=== PATIENT | female | born 1985 | race Caucasian/White ===

== ENCOUNTER 2022-06-30 11:03 | Outpatient (CLI) | payer BC, SELFPAY ==
[2022-06-30 21:15] LABS: Chloride* 101 mmol/L (96-114)
[2022-06-30 21:16] LABS: Potassium* 4.3 mmol/L (3.6-5.1); Sodium* 135 mmol/L (135-149)
[2022-06-30 21:18] LABS: Creatinine* 0.7 mg/dL (0.5-1.5); Estimated Glomerular Filt Rate 113 ml/min
[2022-06-30 21:19] LABS: Blood Urea Nitrogen* 14 mg/dL (5-24); Calcium* 9.3 mg/dL (8.4-10.6); Carbon Dioxide* 31 mmol/L (20-32); Glucose* 92 mg/dL (60-115)
== END 2022-06-30 11:04 | disposition home or self-care (01) ==
PROVIDERS: PCP Physician Assistant Medical; Visit Provider Emergency Medicine
DX: Z01.818 Encounter for other preprocedural examination (principal)
CPT/HCPCS: 80048

== ENCOUNTER 2022-11-01 10:13 | Outpatient (CLI) | payer BC, SELFPAY ==
[2022-11-01 22:41] LABS: Albumin* 4.2 g/dL (3.3-5.0); Chloride* 105 mmol/L (96-114)
[2022-11-01 22:42] LABS: Potassium* 4.6 mmol/L (3.6-5.1); Sodium* 137 mmol/L (135-149)
[2022-11-01 22:44] LABS: Aspartate Amino Transferase* 24 U/L (12-35); Bilirubin Total* 0.4 mg/dL (0.1-1.5); Carbon Dioxide* 28 mmol/L (20-32); Creatinine* 0.7 mg/dL (0.5-1.5); Estimated Glomerular Filt Rate 113 ml/min; Total Protein* 6.8 g/dL (6.0-8.3)
[2022-11-01 22:45] LABS: Alanine Aminotransferase* 23 U/L (4-35); Alkaline Phosphatase* 84 U/L (40-150); Blood Urea Nitrogen* 17 mg/dL (5-24); Calcium* 9.2 mg/dL (8.4-10.6); Glucose* 90 mg/dL (60-115)
[2022-11-02 21:04] LABS: Rheumatoid Factor 11 IU/mL (0-14)
[2022-11-03 12:13] LABS: Anti-Nuclear Ab(ANA)IgG ELISA None Detected (None Detected)
[2022-11-05 06:33] LABS: Vitamin C, Plasma 52 umol/L (23-114)
== END 2022-11-01 10:14 | disposition home or self-care (01) ==
PROVIDERS: PCP Physician Assistant Medical; Visit Provider Physician Assistant Medical
DX: D69.6 Thrombocytopenia, unspecified (principal)
CPT/HCPCS: 80053; 82180; 86039; 86431; 86812

== ENCOUNTER 2022-11-08 09:04 | Outpatient (CLI) | payer BC, SELFPAY ==
--- NOTE | 2022-11-08 09:15 | CRLHL7_ITS ---
For Patients: As a result of the Century Cures Act, medical imaging exams and procedure reports are released immediately into your electronic medical record. You may view this report before your referring provider. If you have questions, please contact your health care provider. INDICATION: HEAVY MENSES COMPARISON: none TECHNIQUE: 2D dozier scale and color Doppler images were acquired of the pelvis using a transabdominal and transvaginal approach. FINDINGS: Sonographic images demonstrate a normal size and smooth outer contour of the uterus. Uterus measures 8.6 cm in length by 5.3 cm in AP diameter by 6.9 cm in transverse dimension. The myometrium has a heterogeneous echotexture. The endometrial lining appears mildly ill-defined and measures 8 mm in composite thickness. The right ovary measures 2.5 x 1.9 x 2.2 cm in size and the left ovary measures 1.8 x 1.2 x 1.5 cm. The ovaries demonstrate normal arterial and venous blood flow on color Doppler analysis. There are no suspicious fluid collections within the cul-de-sac. IMPRESSION: Endometrial thickness 8 millimeters. No uterine fibroid. Incidental simple left ovarian cyst. Dictated by Aime Rand MD @ 11/08/2022 10:29:19 AM (Electronically Signed)
== END 2022-11-08 09:05 | disposition home or self-care (01) ==
LOC: US 09:05
PROVIDERS: PCP Physician Assistant Medical; Visit Provider Physician Assistant Medical
DX: N92.0 Excessive and frequent menstruation with regular cycle (principal); R93.89 Abnormal findings on diagnostic imaging of other specified body structures; N83.202 Unspecified ovarian cyst, left side
CPT/HCPCS: 76830; 76856

== ENCOUNTER 2022-11-25 09:50 | Outpatient (CLI) | payer BC, SELFPAY ==
[2022-11-25 22:30] LABS: H pylori Ag Stool* Negative (Negative)
== END 2022-11-25 09:51 | disposition home or self-care (01) ==
PROVIDERS: PCP Physician Assistant Medical; Visit Provider Physician Assistant Medical
DX: D69.6 Thrombocytopenia, unspecified (principal)
CPT/HCPCS: 87338

== ENCOUNTER 2022-12-09 14:47 | Outpatient (RCR) | payer BC, SELFPAY | END 2023-06-07 23:59 | disposition home or self-care (01) | LOC: CCIC 14:47 | PROVIDERS: PCP Physician Assistant Medical; Referring Provider Internal Medicine Medical Oncology; Visit Provider Internal Medicine Hematology & Oncology | DX: D69.3 Immune thrombocytopenic purpura (principal) | CPT/HCPCS: 99202; 99203; 99212 ==

== ENCOUNTER 2023-06-30 15:12 | Outpatient (CLI) | payer BC, SELFPAY | END 2023-06-30 15:13 | disposition home or self-care (01) | PROVIDERS: PCP Physician Assistant Medical; Visit Provider Physician Assistant Medical | DX: D69.6 Thrombocytopenia, unspecified (principal); N92.0 Excessive and frequent menstruation with regular cycle; R10.9 Unspecified abdominal pain | CPT/HCPCS: 80053; 82784; 83690; 86364 ==

== ENCOUNTER 2023-07-29 08:28 | Outpatient (CLI) | payer BC, SELFPAY ==
--- NOTE | 2023-07-29 07:56 | W.ANESCHARGE ---
Anesthesia Charges Start Date/Time Anesthesia Start Date: 07/29/23 Anesthesia Start Time: 09:32 Stop Date/Time Anesthesia Stop Date: 07/29/23 Anesthesia Stop Time: 09:48
--- NOTE | 2023-07-29 09:51 | W.ANESCHARGE ---
Anesthesia Charges Start Date/Time Anesthesia Start Date: 07/29/23 Anesthesia Start Time: 09:32 Stop Date/Time Anesthesia Stop Date: 07/29/23 Anesthesia Stop Time: 09:48
== END 2023-07-29 08:29 | disposition home or self-care (01) ==
LOC: OP CLINIC 08:28
PROVIDERS: PCP Physician Assistant Medical; Visit Provider Internal Medicine
DX: K21.9 Gastro-esophageal reflux disease without esophagitis (principal)
CPT/HCPCS: 00731; 43239; 88305; J2704; J3490

== ENCOUNTER 2024-06-01 11:36 | Outpatient (CLI) | payer BC, SELFPAY ==
--- NOTE | 2024-06-06 10:50 | ONC.NURNOTE ---
Addendum entered and electronically signed by Patricia Hoover PageMARJAN 06/20/24 15:00: Reviewed most recent chart note, and lab work per Gisel Clarke PA-C with Dr. Sanchez. Recommend to continue with current plan as per most recent office note by Kennedi Sanchez MD. Appreciate call with Gisel Clarke regarding this patient. Should her symptoms worsen, or platelets drop below 50,000, she should be seen by hem/onc again. Original Note: Patient called stating that her PCP would like her to see [facility] again. Per last note from Dr. Sanchez, we would see patient back if platelets were less than 50K x2. Clay Digger asked patient if having new symptoms, and she notes nose bleed daily, this usually lasts a couple of minutes with pressure to the area. There has been 1-2 instances when this lasted about 10 minutes. This is usually from the right nostrile. This happens randomly and when blowing her nose. She has not seen ENT at this point, she was given a prescription from PCP to apply to the area. She is unsure on what this is and it is not noted in her chart. Nursing to discuss with [facility] whether it would be appropriate to see patient again, or if they have suggestions to PCP. Patient is aware that Dr. Sanchez is not back in the office until next week, nursing to update her late next week.
== END 2024-06-01 11:37 | disposition home or self-care (01) ==
LOC: NFLDREF 06-03 07:54
PROVIDERS: PCP Physician Assistant Medical; Referring Provider Physician Assistant Medical; Visit Provider Physician Assistant Medical
DX: D69.6 Thrombocytopenia, unspecified (principal)
CPT/HCPCS: 80053; 86618; 87468; 87469; 87484; 87798

== ENCOUNTER 2024-06-11 17:34 | Outpatient (CLI) | payer BC, SELFPAY ==
[2024-06-11 23:31] LABS: Chlamydia DNA Amplified* NOT DETECTED (No Detected); GC DNA Amplified* NOT DETECTED (No Detected)
== END 2024-06-11 17:35 | disposition home or self-care (01) ==
LOC: LKVREF 17:34
PROVIDERS: PCP Physician Assistant Medical; Visit Provider Physician Assistant Medical
DX: Z00.00 Encounter for general adult medical examination without abnormal findings (principal); Z11.3 Encounter for screening for infections with a predominantly sexual mode of transmission
CPT/HCPCS: 87491; 87591

== ENCOUNTER 2024-10-08 14:03 | Outpatient (CLI) | payer BC, SELFPAY ==
--- NOTE | 2024-10-08 14:00 | CRLHL7_ITS ---
For Patients: As a result of the Century Cures Act, medical imaging exams and procedure reports are released immediately into your electronic medical record. You may view this report before your referring provider. If you have questions, please contact your health care provider. BILATERAL SCREENING MAMMOGRAM WITH COMPUTER-AIDED DETECTION AND TOMOSYNTHESIS TECHNIQUE: CC and MLO views were obtained. These mammographic images have been obtained using full-field digital technique. These mammographic images were interpreted with the benefit of computer-aided detection. Breast Tomosynthesis was used in this interpretation. COMPARISON FILM: Baseline. FINDINGS: There are scattered areas of fibroglandular density IMPRESSION: There is no radiographic evidence for malignancy. ASSESSMENT: BI-RADS Category 1: Negative RECOMMENDATION: Routine screening mammogram in 1 year. A lay language report of this examination will be provided to the patient. Aime Rand M.D. Diagnostic Radiologist [email or web address] LVAERN/[email or web address] / bM/Dictated by: Aime Rand MD @ 10/12/2024 10:36:00 AM (Electronically Signed)
== END 2024-10-08 14:04 | disposition home or self-care (01) ==
LOC: MAMMO 14:04
PROVIDERS: PCP Physician Assistant Medical; Visit Provider Physician Assistant Medical
DX: Z12.31 Encounter for screening mammogram for malignant neoplasm of breast (principal)
CPT/HCPCS: 77063; 77067

== ENCOUNTER 2024-11-16 10:02 | Day surgery (SDC) | payer BC, SELFPAY ==
[2024-11-16 10:10] VITALS: BMI 31.8
[2024-11-16 10:16] VITALS: BP 133/85; PULSE 85; RESP 16; TEMP 36.6; O2SAT 98
[2024-11-16] MEDS: LIDOCAINE 1%-EPI 1:100,000 20 ML INFILTRATI (11:00)
[2024-11-16] MEDS: BUPIVACAINE 0.5% 30 ML INJECTION (11:00)
[2024-11-16 11:15] VITALS: BP 122/64; PULSE 66; RESP 18; O2SAT 100
[2024-11-16 11:20] VITALS: BP 119/63; PULSE 80; RESP 20
[2024-11-16 11:25] VITALS: BP 116/66; PULSE 72; RESP 18; O2SAT 100
[2024-11-16 11:31] VITALS: BP 121/67; PULSE 71; RESP 18; O2SAT 99
[2024-11-16] MEDS: BACITRACIN OINTMENT BULK TUBE 1 APPLIC TOPICAL (11:35)
--- NOTE | 2024-11-16 11:35 | PM.ORPRC ---
Procedure Note Date of procedure: 11/16/24 Procedure: PREOPERATIVE DIAGNOSIS: 1. Right carpal tunnel syndrome POSTOPERATIVE DIAGNOSIS: 1. Right carpal tunnel syndrome PROCEDURE: 1. Right open carpal tunnel release SURGEON: Ervin Rosas MD. PROPELLANT ASSEMBLER: SYDNEY Hooper ANESTHESIA: Local anesthetic (50:50 mixture of 1% lidocaine with epi and 0.5% marcaine plain) - 10ml total IMPLANTS: None EBL: 2 mL TOURNIQUET: None COMPLICATIONS: None evident INDICATIONS: The patient is a pleasant 39yo Female who has experienced right hand numbess/tingling affecting the radial 3.5 digits for multiple months. It has progressively gotten worse. Nonoperative management has been tried and failed, and therefore surgery was recommended. DESCRIPTION OF PROCEDURE: Following a thorough discussion of risks, benefits, and alternatives consent was obtained and the operative extremity was marked. The patient was brought to the operating room and placed supine on the operating table. Local anesthesia induction was undertaken in preop holding. No antibiotics were administered as this was planned to be a local case only. Proper time-out was performed identifying proper patient, site, and procedure. The operative extremity was prepped and draped in the appropriate sterile fashion using ChloraPrep. An incision was made in line with the radial border of the ring finger beginning 1 cm distal to the distal wrist crease and progressing for another 2.5cm distal. Caution was taken to stay proximal to Figueroa's cardinal line. Sharp incision through the skin, subcutaneous tissue, and palmar fascia was performed. The thenar musculature was bluntly elevated off the transverse carpal ligament. The ligament was directly visualized, and divided sharply with a 15 blade. This was released from its most proximal to the most distal extent. Metzenbaum scissor was also utilized to release the fascia extension proximally. We confirmed complete release of the transverse carpal ligament. Closure was performed with 4-O nylon in interrupted fashion. Soft dressings were applied, and the patient was transferred to the recovery room in stable condition. PLAN: 1. Encourage elevation of the operative extremity. 2. Range of motion of the fingers and hand/wrist as tolerated. 3. Ibuprofen/acetaminophen and/or oxycodone as needed for pain control. 4. Follow up with PA visit or nurse visit in 12-16 days for wound check and suture removal.
[2024-11-16 11:42] VITALS: BP 119/73; PULSE 64; RESP 18; O2SAT 100
== END 2024-11-16 11:45 | disposition home or self-care (01) ==
LOC: OR 10:03
PROVIDERS: PCP Physician Assistant Medical; Visit Provider Orthopaedic Surgery Sports Medicine
PROC: (CPT 64721; principal; 2024-11-16 11:00)
DX: G56.01 Carpal tunnel syndrome, right upper limb (principal)
CPT/HCPCS: 64721; J0665

== ENCOUNTER 2025-07-17 13:40 | Outpatient (CLI) | payer BC, SELFPAY ==
[2025-07-17 23:02] LABS: Chlamydia DNA Amplified* NOT DETECTED (No Detected); GC DNA Amplified* NOT DETECTED (No Detected)
[2025-07-19 03:49] LABS: HPV Source Cervix
[2025-07-24 16:24] LABS: Pap Test Digital Imaging Done; Pap Test Reviewed by Pathologi Done
== END 2025-07-17 13:41 | disposition home or self-care (01) ==
PROVIDERS: PCP Physician Assistant Medical; Visit Provider Physician Assistant Medical
DX: D69.6 Thrombocytopenia, unspecified (principal); N92.6 Irregular menstruation, unspecified; Z12.4 Encounter for screening for malignant neoplasm of cervix; Z11.51 Encounter for screening for human papillomavirus (HPV)
CPT/HCPCS: 87491; 87591; 87624; 87625; 88141; 88142; 88175

== ENCOUNTER 2025-07-23 09:20 | Outpatient (CLI) | payer BC, SELFPAY ==
--- NOTE | 2025-07-23 09:15 | CRLHL7_ITS ---
For Patients: As a result of the Century Cures Act, medical imaging exams and procedure reports are released immediately into your electronic medical record. You may view this report before your referring provider. If you have questions, please contact your health care provider. CLINICAL HISTORY: Pelvic Pain and Bleeding Clots COMPARISON: 11/08/2022 TECHNIQUE: 2D dozier-scale ultrasound. In addition, color Doppler and spectral Doppler analysis was performed of the pelvis using a transabdominal and transvaginal approach. Transvaginal imaging performed to better visualize the endometrial stripe and ovaries. FINDINGS: Uterus measures 10.1 x 4.3 x 5.9 cm. Endometrium measures 13.5 millimeters. Cervical nabothian cysts are present. No uterine fibroid. The right ovary measures 2.6 x 1.8 x 2.5 cm in size and the left ovary measures 2.3 x 1.2 x 2.5 cm. The ovaries demonstrate normal arterial and venous blood flow on color Doppler and spectral Doppler analysis. There are no suspicious fluid collections within the cul-de-sac. Collapsing right ovarian cyst measures 2.2 x 1.5 x 1.6 cm. IMPRESSION: Endometrium measures 13.5 millimeters. No uterine fibroid. Collapsing right ovarian cyst measures 2.2 cm. No ovarian torsion. Dictated by Aime Rand MD @ 07/23/2025 11:34:26 AM (Electronically Signed)
== END 2025-07-23 09:21 | disposition home or self-care (01) ==
LOC: US 09:21
PROVIDERS: PCP Physician Assistant Medical; Visit Provider Physician Assistant Medical
DX: R10.2 Pelvic and perineal pain (principal); N92.6 Irregular menstruation, unspecified; R93.89 Abnormal findings on diagnostic imaging of other specified body structures; N83.201 Unspecified ovarian cyst, right side
CPT/HCPCS: 76830; 76856; 93976

== ENCOUNTER 2025-09-20 10:04 | Outpatient (CLI) | payer BC, SELFPAY | END 2025-09-20 10:05 | disposition home or self-care (01) | PROVIDERS: PCP Physician Assistant Medical; Visit Provider Physician Assistant Medical | DX: D69.6 Thrombocytopenia, unspecified (principal) | CPT/HCPCS: 82607; 82746 ==

== ENCOUNTER 2025-10-29 09:34 | Outpatient (CLI) | payer BC, SELFPAY ==
--- NOTE | 2025-10-29 09:45 | CRLHL7_ITS ---
For Patients: As a result of the Century Cures Act, medical imaging exams and procedure reports are released immediately into your electronic medical record. You may view this report before your referring provider. If you have questions, please contact your health care provider. DIGITAL DIAGNOSTIC BILATERAL MAMMOGRAM USING TOMOSYNTHESIS AND COMPUTER-AIDED DETECTION LEFT BREAST ULTRASOUND CLINICAL HISTORY: LEFT breast lump. COMPARISON: 10/08/2024. TECHNIQUE: Digital BILATERAL mammogram in four projections with computer-aided detection. Tomosynthesis was used in this interpretation. Real-time ultrasound imaging of LEFT breast with imaging documentation. BREAST COMPOSITION: There are scattered areas of fibroglandular density. FINDINGS: 3D CC/MLO BILATERAL mammogram images submitted. No suspicious masses or architectural distortion. No suspicious calcifications. No adenopathy. Targeted LEFT breast ultrasound performed in the area of concern. Normal tissues are present. No suspicious findings. Imaging performed in the far medial LEFT breast/chest wall. IMPRESSION: No suspicious findings. No evidence of malignancy. RECOMMENDATIONS: Routine screening mammography. A lay language report of this examination will be provided to the patient. BI-RADS Category 2: Benign Dictated by Aime Rand MD @ 10/29/2025 10:31:01 AM jj/Dictated by: Aime Rand MD @ 10/29/2025 10:31:00 AM (Electronically Signed)
--- NOTE | 2025-10-29 10:15 | CRLHL7_ITS ---
For Patients: As a result of the Cures Act, medical imaging exams and procedure reports are released immediately into your electronic medical record. You may view this report before your referring provider. If you have questions, please contact your health care provider. SEE DIGITAL DIAGNOSTIC BILATERAL MAMMOGRAM PERFORMED SAME DAY CRL:[email or web address] burton/Dictated by: Aime Rand MD @ 10/29/2025 10:38:00 AM (Electronically Signed)
== END 2025-10-29 09:35 | disposition home or self-care (01) ==
LOC: MAMMO 09:35
PROVIDERS: PCP Physician Assistant Medical; Visit Provider Physician Assistant Medical
DX: N63.20 Unspecified lump in the left breast, unspecified quadrant (principal)
CPT/HCPCS: 76642; 77066; G0279